=== PATIENT | female | born 1975 | race Caucasian/White ===

== ENCOUNTER 2022-07-05 22:08 | Inpatient (IN) | payer OTHER ==
[~2022-07-05] VITALS: Ht 170.2 cm; Wt 44.5 kg
[2022-07-05 23:25] LABS: RED BLOOD COUNT 4.19 M/UL (4.00-5.10); WHITE BLOOD COUNT 23.6 K/UL (4.5-11.0)
[2022-07-05 23:46] LABS: BUN/CREATININE RATIO 57 (0-10)
[2022-07-06] MEDS ORDERED: BUPRENORPHINE-1 EACH SL (11:03)
[2022-07-06] MEDS ORDERED: GABAPENTIN600 MG PO (11:03)
[2022-07-06] MEDS ORDERED: MIRALAX 119 GR119 GM PO (11:04)
[2022-07-06] MEDS ORDERED: PROTONIX40 MG PO (11:05)
[2022-07-06] MEDS ORDERED: DAILY-VITE TA400 MCG PO (11:05)
[2022-07-07 04:48] LABS: HEMOGLOBIN 8.7 gm/dl (12.3-15.3)
[2022-07-07 05:15] LABS: BUN/CREATININE RATIO 23 (0-10)
[2022-07-07 05:16] LABS: RED BLOOD COUNT 3.62 M/UL (4.00-5.10); WHITE BLOOD COUNT 11.7 K/UL (4.5-11.0)
[2022-07-08 05:53] LABS: HEMOGLOBIN 9.7 gm/dl (12.3-15.3); RED BLOOD COUNT 3.97 M/UL (4.00-5.10); WHITE BLOOD COUNT 17.8 K/UL (4.5-11.0)
[2022-07-08 06:16] LABS: BUN/CREATININE RATIO 13 (0-10)
[2022-07-09 04:32] LABS: HEMOGLOBIN 9.1 gm/dl (12.3-15.3); RED BLOOD COUNT 3.78 M/UL (4.00-5.10)
[2022-07-09 04:33] LABS: WHITE BLOOD COUNT 12.6 K/UL (4.5-11.0)
[2022-07-09 05:18] LABS: BUN/CREATININE RATIO 14 (0-10)
[2022-07-10 06:18] LABS: HEMOGLOBIN 8.4 gm/dl (12.3-15.3); RED BLOOD COUNT 3.64 M/UL (4.00-5.10); WHITE BLOOD COUNT 12.1 K/UL (4.5-11.0)
[2022-07-10 06:39] LABS: BUN/CREATININE RATIO 17 (0-10)
[2022-07-11 05:12] LABS: HEMOGLOBIN 8.9 gm/dl (12.3-15.3); RED BLOOD COUNT 3.74 M/UL (4.00-5.10); WHITE BLOOD COUNT 13.9 K/UL (4.5-11.0)
[2022-07-11 06:23] LABS: BUN/CREATININE RATIO 16 (0-10)
--- NOTE | 2022-07-11 18:27 | NUR ---
PATIENT REFUSED TO TURN PER PROTOCOL. SHE HAS LARGE OPEN PRESSURE ULCER SHE IS BEING TREATED FOR. POST DRESSING CHANGE SHE TURNED TO RIGHT HIP. AT TIME TO TURN SHE REFUSED TO GO TO THE OTHER HIP AND INSISTED ON SITTING FLAT ON HER BUTTOCKS RELIEVING NO PRESSURE ON HER ULCER. PROVIDER NOTIFIED. NO NEW ORDERS RECIEVED AT THIS TIME. WCTM.
[2022-07-12 05:45] LABS: HEMOGLOBIN 9.6 gm/dl (12.3-15.3); RED BLOOD COUNT 4.03 M/UL (4.00-5.10); WHITE BLOOD COUNT 11.1 K/UL (4.5-11.0)
[2022-07-12 06:02] LABS: BUN/CREATININE RATIO 18 (0-10)
[2022-07-13 06:48] LABS: RED BLOOD COUNT 3.75 M/UL (4.00-5.10); WHITE BLOOD COUNT 10.1 K/UL (4.5-11.0)
[2022-07-13 07:19] LABS: BUN/CREATININE RATIO 26 (0-10)
[2022-07-14 08:42] LABS: HEMOGLOBIN 7.8 gm/dl (12.3-15.3); RED BLOOD COUNT 3.33 M/UL (4.00-5.10); WHITE BLOOD COUNT 8.9 K/UL (4.5-11.0)
[2022-07-14 09:38] LABS: BUN/CREATININE RATIO 22 (0-10)
[2022-07-14] MEDS ORDERED: DULCOLAX5 MG PO (11:44)
[2022-07-14] MEDS ORDERED: SANTYL OINT 3030 GM TOP (11:44)
[2022-07-14] MEDS ORDERED: CEFADROXIL500 MG PO (11:47)
[2022-07-14] MEDS ORDERED: METRONIDAZOLE500 MG PO (11:47)
== END 2022-07-14 14:12 | disposition home health service (06) | DRG 698 ==
LOC: ER1 22:08 → CDU 07-06 01:33 → MED SURG 4 07-06 01:33
PROVIDERS: Internal Medicine; Nurse Practitioner; Physician Assistant Medical; ADMIT Family Medicine
DX: T83.511A Infection and inflammatory reaction due to indwelling urethral catheter, initial encounter (principal); A41.51 Sepsis due to Escherichia coli [E. coli]; E43 Unspecified severe protein-calorie malnutrition; L89.154 Pressure ulcer of sacral region, stage 4; J18.9 Pneumonia, unspecified organism; G82.20 Paraplegia, unspecified; N30.00 Acute cystitis without hematuria; J45.901 Unspecified asthma with (acute) exacerbation; J96.11 Chronic respiratory failure with hypoxia; F11.20 Opioid dependence, uncomplicated; J44.0 Chronic obstructive pulmonary disease with (acute) lower respiratory infection; Z68.1 Body mass index [BMI] 19.9 or less, adult; G89.29 Other chronic pain; K59.00 Constipation, unspecified; E86.0 Dehydration; E86.9 Volume depletion, unspecified; D50.9 Iron deficiency anemia, unspecified; Z99.81 Dependence on supplemental oxygen; Z87.440 Personal history of urinary (tract) infections; Z90.49 Acquired absence of other specified parts of digestive tract; Z90.710 Acquired absence of both cervix and uterus; Z98.890 Other specified postprocedural states; Z87.891 Personal history of nicotine dependence; Z82.0 Family history of epilepsy and other diseases of the nervous system; Z74.01 Bed confinement status; Z88.5 Allergy status to narcotic agent; Z99.3 Dependence on wheelchair
CPT/HCPCS: 36415; 71045; 74018; 80048; 80053; 80202; 81001; 82607; 82728; 82746; 83540; 83550; 83605; 83690; 83735; 84132; 84484; 85025; 85027; 87040; 87070; 87077; 87081; 87086; 87186; 87205; 93005; 94640; 94664; 94760; 96374; 96375; 96376; 97110; 97166; 99285; A6212; J1650; J2212; J2250; J2543; J3370; J3475; J7070